=== PATIENT | female | born 1995 | race Caucasian/White ===

== ENCOUNTER 2022-05-18 16:17 | Inpatient (IN) | payer MEDICAID, SELFPAY ==
[2022-05-18] VITALS (15 sets, daily range): BP systolic 96–123; BP diastolic 51–72; PULSE 69–105; RESP 18–20; TEMP 36.6–36.9; O2SAT 93–98; BMI 47.0
[2022-05-18 12:47] LABS: Amnisure Rom* Negative
[2022-05-18 15:59] LABS: Amnisure Rom* POSITIVE
[2022-05-18] MEDS: miSOPROStoL 25 MCG/0.25 TABLET PO ×4 (17:13→23:20)
--- NOTE | 2022-05-18 17:58 | PM.OBHPLI ---
OB - H&P: HPI Labor/Induction History of Present Illness Time Seen by Provider: 17:58 Date Seen: 05/18/22 Chief Complaint: Rupture of membranes Chief complaint: Maternity : 2 Para: 0 Narrative: Sumaya Baker is a 26 year old 2 para 0 at 38.1 weeks gestation by9 week ultrasound, who presents with SROM. Patient presented with possible SROM at 1030 this morning. Initially had negative amnisure, but was kumar irregularly and monitored. She was rechecked and found to be unchanged but had copious fluid and repeat amnisure was positive. Dates are based by 9 week ultrasound. complicated by: 1) Prepregnancy BMI of 45, on asa prophylaxis. Normal echo and level 2 EFW at 36 weeks was 65th Percentile 2) Gestational diabetes, diet controlled. Has been doing well has rare elevated glucose 3) Recurrent e.coli UTI, has been on prophylaxis most of , treated with IM ceftriaxone 4) History of depression/anxiety prior to . Hopes to restart prozac and wellbutrin after delivery. History of Present Dating criteria: other (9 week ultrasound) care: good care Ultrasounds: normal 1st trimester US and normal mid trimester US complications: gestational diabetes complications comment: recurrent ecoli UTI Medical complications: genitourinary Labs Blood type: O (+) positive Rubella: immune RPR/VDLR: nonreactive GBS status: negative HBsAG: negative Narrative: Chlamydia negative, hemoglobin 11.1 (04/27/22), HCV non reactive, Failed GTT. Review of Systems Status of ROS: Reports: 10 or more systems reviewed and unremarkable except as noted in History and below Meds Home Medications and Allergies Home Medications Medication Instructions Recorded Confirmed Type albuterol sulfate 90 mcg/actuation inhalation 05/18/22 History aerosol inhaler aspirin 81 mg tablet,delayed mg 05/18/22 History release blood sugar diagnostic (Accu-Chek 05/18/22 05/18/22 History Guide test strips) blood-glucose meter (Accu-Chek 05/18/22 05/18/22 History Guide Me Glucose Meter) [id number]-zeoebrtm cap 05/18/22 History 50 mg-300 mg-40 mg capsule cholecalciferol (vitamin D3) 50 05/18/22 History mcg (2,000 unit) tablet doxylamine succinate 25 mg tablet mg 05/18/22 History (Sleep Aid (doxylamine)) lancets (Accu-Chek Softclix 05/18/22 05/18/22 History Lancets) lancets 30 gauge (OneTouch Delica 05/18/22 05/18/22 History Plus Lancet) Allergies Allergy/AdvReac Type Severity Reaction Status Date / Time shellfish Allergy Severe Uncoded 05/18/22 17:50 tape sensativity Allergy Severe Uncoded 05/18/22 17:50 OB - H&P: Exam Physical Exam: Vital signs: Temp Pulse Resp BP Pulse Ox 98.1 F 105 H 20 119/68 97 05/18/22 17:00 05/18/22 17:00 05/18/22 17:00 05/18/22 17:00 05/18/22 17:00 Constitutional: Constitutional: no acute distress and cooperative Routine HEENT Exam: Head: Present atraumatic, normal inspection and normocephalic Routine Neck Exam: Neck: Present full ROM Routine Respiratory Exam: Respiratory: Present CTA bilaterally Routine Cardiovascular Exam: Cardiovascular: RRR, S1 and S2 Routine Abdominal Exam: Abdominal: Present normal bowel sounds Detailed Labor and Delivery Exam: Patient Gravid: yes Contraction intensity: Mild Routine Psychiatric Exam: Present normal affect and normal thought process OB - Problem Based A/P Additional Plan (1) Term : Status: Acute Plan: Admitted following SROM. Oliveira score unfavorable, so will do cytotec tonight and start pitocin when cervix more favorable. (2) Gestational diabetes mellitus: Status: Acute Plan: - blood sugars per protocol, has been diet controlled. (3) Anxiety and depression: Status: Acute Plan: plan to restart Wellbutrin and SSRI after delivery Delivery/Labor/Induction Plan Plan: induction Induction method: per misoprostol protocol
[2022-05-18 19:33] LABS: SARS PCR* Negative SARS-CoV-2 (Negative)
[2022-05-18 19:41] LABS: Basophils Absolute Auto 0.02 K/uL (0.00-0.30); Basophils Percent Auto 0.2 % (0.0-3.0); Eosinophils Absolute Auto 0.06 K/uL (0.00-0.50); Eosinophils Percent Auto 0.6 % (0.0-7.0); Hematocrit 34.5 % (33.0-51.0); Hemoglobin* 11.6 gm/dL (12.0-16.0); Immature Granulocytes Abs Auto 0.03 K/uL (0.00-0.30); Immature Granulocytes Pct Auto 0.3 %; Lymphocytes Percent Auto 14.4 % (20-44); Mean Corpuscular HGB Conc 34 gm/dL (32-36); Mean Corpuscular Hemoglobin 28 pg (26-34); Mean Corpuscular Volume 83 fL (80-100); Monocytes Percent Auto 5.5 % (0.0-11.0); Platelet Count* 242 K/uL (140-440); RDW Coefficient of Variation % 13.8 % (11.5-15.5); Red Blood Count 4.15 m/uL (4.00-5.20); White Blood Count* 10.28 K/uL (4.50-11.00)
[2022-05-18 19:45] LABS: Slide Review Reflex No
[2022-05-18] MEDS: SODIUM CHLORIDE 0.9 % (FLUSH) 10 ML SYRINGE IVF (23:17)
[2022-05-19] VITALS (202 sets, daily range): BP systolic 74–139; BP diastolic 37–86; PULSE 60–153; RESP 16–20; TEMP 36.3–38; O2SAT 88–100
[2022-05-19] MEDS: SODIUM CHLORIDE 0.9 % (FLUSH) 10 ML SYRINGE IVF (00:26)
[2022-05-19] MEDS: LACTATED RINGERS 1000 ML 1,000 ML 1200 ML IV ×3 (00:28→06:17)
[2022-05-19] MEDS: ROPIVACAINE 0.2% 100 ml 100 ML 12 MG EPIDURAL ×3 (01:25→15:23)
[2022-05-19] MEDS: fentaNYL 250 MCG/5 ML inj 100 MCG EPIDURAL (01:25)
[2022-05-19] MEDS: LIDOCAINE 2% (PF) 5 ML VIAL EPIDURAL (01:26)
--- NOTE | 2022-05-19 01:35 | P.ANBPRC_ITS ---
PFSH PFS Social History Smoking Status: Former smoker Meds Home Medications and Allergies Home Medications Medication Instructions Recorded Confirmed Type albuterol sulfate 90 mcg/actuation inhalation 05/18/22 History aerosol inhaler aspirin 81 mg tablet,delayed mg 05/18/22 History release blood sugar diagnostic (Accu-Chek 05/18/22 05/18/22 History Guide test strips) blood-glucose meter (Accu-Chek 05/18/22 05/18/22 History Guide Me Glucose Meter) [id number]-szkaqgwjsckiu-aazutgos cap 05/18/22 History 50 mg-300 mg-40 mg capsule cholecalciferol (vitamin D3) 50 05/18/22 History mcg (2,000 unit) tablet doxylamine succinate 25 mg tablet mg 05/18/22 History (Sleep Aid (doxylamine)) lancets (Accu-Chek Softclix 05/18/22 05/18/22 History Lancets) lancets 30 gauge (OneTouch Delica 05/18/22 05/18/22 History Plus Lancet) Allergies Allergy/AdvReac Type Severity Reaction Status Date / Time shellfish Allergy Severe Uncoded 05/18/22 17:50 tape sensativity Allergy Severe Uncoded 05/18/22 17:50 Results Labs Labs: Laboratory Results - last 24 hr 05/18/22 05/18/22 05/18/22 12:28 15:24 16:27 WBC RBC Hgb Hct MCV MCH MCHC RDW Coeff of Reji Plt Count Neut % (Auto) Lymph % (Auto) [place] % (Auto) Eos % (Auto) Baso % (Auto) Neut # (Auto) Lymph # (Auto) [place] # (Auto) Eos # (Auto) Baso # (Auto) Abs Immat Gran (auto) Imm/Tot Granulo (auto) Membrane Rupture Negative POSITIVE SARS-CoV-2 (PCR) Negative SARS-CoV-2 Blood Type Antibody Screen 05/18/22 05/18/22 19:35 19:35 WBC 10.28 RBC 4.15 Hgb 11.6 L Hct 34.5 MCV 83 MCH 28 MCHC 34 RDW Coeff of Reji 13.8 Plt Count 242 Neut % (Auto) 79.0 H Lymph % (Auto) 14.4 L [place] % (Auto) 5.5 Eos % (Auto) 0.6 Baso % (Auto) 0.2 Neut # (Auto) 8.10 H Lymph # (Auto) 1.50 [place] # (Auto) 0.60 Eos # (Auto) 0.06 Baso # (Auto) 0.02 Abs Immat Gran (auto) 0.03 Imm/Tot Granulo (auto) 0.3 Membrane Rupture SARS-CoV-2 (PCR) Blood Type O Positive Antibody Screen NEGATIVE Vital Signs Vital Signs: Last Vital Signs Temp 98.4 F 05/18/22 23:14 Pulse 86 05/19/22 01:33 Resp 20 05/18/22 23:14 BP 107/58 L 05/19/22 01:33 Pulse Ox 94 05/19/22 01:33 Weight: 116.5 kg Height: 157.48 cm Anesthesia Procedures Epidural Insertion Patient Location: OB Start Time: 00:30 Stop Time: 01:35 Start Date: 05/19/22 Stop Date: 05/19/22 Reason for Block: primary anesthetic Patient Position: sitting Performed By: Darwin Franz Preanesthetic Checklist: IV checked, risks and benefits discussed, surgical consent, monitors and equipment checked, pre-op evaluation, timeout performed a nd anesthesia consent Prep: chlorhexidine gluconate Monitoring: blood pressure monitoring, chocolate molder, continuous pulse oximetry and heart rate Approach: midline Vertebral Space: lumbar (1-5) Needle Type: Tuohy needle Injection Technique: continuous catheter Needle gauge: 17 Needle Length (cm): 10 cm Needle Insertion Depth (cm): 9 Catheter Gauge: 19 Catheter Type: multi-orifice Catheter at skin depth (cm): 14 Test Dose Result: negative and lidocaine 1.5% with epinephrine 1 to 200,000 Events: other
[2022-05-19] MEDS: OXYTOCIN 30 unit/500 ML in NS 30 UNIT/500 ML BAG IVPB ×2 (02:24→03:00)
[2022-05-19] MEDS: PHENYLEPHRINE 100 MCG/ML SYRINGE IVP ×3 (06:03→06:19)
--- NOTE | 2022-05-19 09:57 | P.OBPN_ITS ---
Subjective Time Seen by Provider: 09:20 Date Seen: 05/19/22 Narrative: I was called by RN for consideration of IUPC. Contractions difficult to follow with external monitor, on pitocin. Pit at 9. Patient states overall comfortable. Some discomfort in her lower abdomen and back with contractions. Objective Vital Signs: Last Vital Signs Temp 98.9 F 05/19/22 09:46 Pulse 73 05/19/22 09:52 Resp 16 05/19/22 09:46 BP 135/64 05/19/22 09:52 Pulse Ox 98 05/19/22 07:45 Pelvic Exam Dilation (cm): 5 Effacement (%): 90 Station: 0 Comments: Unable to determine position due to caput. Contractions Contraction intensity: Mild Plan Plan: IUPC placed following shared decision-making conversation with the patient. C ontinue to titrate pitocin. FHT category 2, occasional variables Anticipate vaginal delivery.
[2022-05-19] MEDS: ONDANSETRON 2 MG/ML inj 4 MG IV (12:03)
[2022-05-19] MEDS: LACTATED RINGERS 1000 ML 1,000 ML 125 ML IV (13:43)
--- NOTE | 2022-05-19 15:07 | PM.OBPNL ---
Subjective Time Seen by Provider: 15:07 Date Seen: 05/19/22 Narrative: Patient found to be complete at 1330. Pushing sine 1350. Pain control is good. Patient perceives pressure well. Support from FOB and patient's mother. Objective Vital Signs: Last Vital Signs Temp 98.9 F 05/19/22 11:20 Pulse 67 05/19/22 15:04 Resp 18 05/19/22 11:20 BP 107/59 L 05/19/22 15:04 Pulse Ox 98 05/19/22 07:45 Pelvic Exam Dilation (cm): 10 Effacement (%): 100 Station: +2 Contractions Monitor mode: Internal Contraction Frequency: q1-2 mins Contraction pattern: Regular Pitocin Rate (mU/min): 14 Assessment Status: Category ll Heart Rate Baseline: 170 [facility] Variability: Moderate (6-25) Monitor Accelerations: Present Monitor Decelerations: Variable Plan Plan: Complete and pushing. Making good progress. Continue current management. Anticipate vaginal delivery.
--- NOTE | 2022-05-19 16:20 | P.OBCN_ITS ---
OB - CN: HPI Date of Consult Date Seen: 05/19/22 Patient: Amy Patient Consult date: 05/19/22 Requesting Physician: Edgar Corrigan MD Primary Care Provider: Not a Local Provider Consult Narrative Reason for consult: other (Maternal exhaustion, requesting delivery) Narrative: The patient is a 26 year old G 2 P 0010 at 38 2/7 weeks gestation that was admitted to the Center on 05/18/22 for labor induction after PROM. Patient was transferred to our labor and delivery unit due to her hospital being on divert. Managed primarily by [facility] providers. IOL progressing adequately. Patient received epidural at around 1am this morning. She progressed to complete dilation at around 1:30pm today and started pushing at around 1:50pm today. After 2 hours of pushing patient has made little change, I was asked to come in to evaluate positioning and also because patient is requesting delivery. Please see [facility] provider H&P for complete history. History of Present Dating criteria: based on LMP care: good care Ultrasounds: normal 1st trimester US complications: gestational diabetes complications comment: recurrent ecoli UTI History History 2 Elective abortions Para 0 Spontaneous abortions Hx # Term Pregnancies Ectopic pregnancies Hx # Pregnancies Multiple births Number of Living Children Labs Blood type: O (+) positive Rubella: immune RPR/VDLR: nonreactive GBS status: negative HBsAG: negative OB Labs: Lab Assessment Start: 05/18/22 12:12 Freq: Status: Complete Protocol: PC.OBGBS Activity Type Activity Date Activity User E-sign Co-sign Detail Recorded Client Recorded Date Recorded By Document 05/18/22 12:12 FRANCESCA [id number] 05/18/22 12:12 SALEEM BELLA 05/18/22 12:12 Lab Assessment GBS Negative Lab Assessment Start: 05/18/22 16:27 Freq: ONCE Status: Complete Protocol: PC.OBGBS Activity Type Activity Date Activity User E-sign Co-sign Detail Recorded Client Recorded Date Recorded By Document 05/18/22 17:00 SD [id number] 05/18/22 17:46 SD 05/18/22 17:00 Lab Assessment GBS Negative Previous [place] with Invasive GBS No Does Patient Meet Criteria No Is Patient Allergic to Penicillin No Does Patient Have History of Severe No Reaction Are Susceptibility Studies Available No Resistant to Either Clindamycin or No Erythromycin No Treatment Needed OK Maternal Blood Type O Maternal RH Factor Positive Evaluate Maternal Rubella Immune Status Immune Hepatitis B Surface Antigen Negative Maternal HIV Status Negative Maternal Syphillis (RPR) Status Negative Are Labs Available Yes PFSH PFSH Social History Smoking Status: Former smoker Meds Home Medications and Allergies Home Medications Medication Instructions Recorded Confirmed Type albuterol sulfate 90 mcg/actuation inhalation 05/18/22 History aerosol inhaler aspirin 81 mg tablet,delayed mg 05/18/22 History release blood sugar diagnostic (Accu-Chek 05/18/22 05/18/22 History Guide test strips) blood-glucose meter (Accu-Chek 05/18/22 05/18/22 History Guide Me Glucose Meter) [id number]-ojnozaimcyewo-aandwxto cap 05/18/22 History 50 mg-300 mg-40 mg capsule cholecalciferol (vitamin D3) 50 05/18/22 History mcg (2,000 unit) tablet doxylamine succinate 25 mg tablet mg 05/18/22 History (Sleep Aid (doxylamine)) lancets (Accu-Chek Softclix 05/18/22 05/18/22 History Lancets) lancets 30 gauge (OneTouch Delica 05/18/22 05/18/22 History Plus Lancet) Allergies Allergy/AdvReac Type Severity Reaction Status Date / Time shellfish Allergy Severe Uncoded 05/18/22 17:50 tape sensativity Allergy Severe Uncoded 05/18/22 17:50 OB - H&P: Exam Physical Exam: Vital signs: Temp Pulse Resp BP Pulse Ox 98.8 F 76 20 124/62 98 05/19/22 16:15 05/19/22 15:41 05/19/22 16:15 05/19/22 15:41 05/19/22 07:45 Narrative: Cervix: 10cm dilated, OP presentation suspected, minimal caput, seems to have adequate space. NST: 155bpm/episodes of minimal variability at this moment/ negative decelerations/regular uterine contractions/ no accelerations in the past 20 minutes at the moment of this dictation. 4:28pm. Category 2. OB - Results Labs Labs: Short CBC 05/18/22 Range/Units 19:35 WBC 10.28 (4.50-11.00) K/uL Hgb 11.6 L (12.0-16.0) gm/dL Hct 34.5 (33.0-51.0) % Plt Count 242 (140-440) K/uL OB - CN: A/P Assessment and Plan (1) Term : Status: Acute (2) Gestational diabetes mellitus: Status: Acute (3) Anxiety and depression: Status: Acute Plan Patient has only been pushing for about 2 hours, baby is OP, but minimal caput and pelvis seems to have an adequate space. After discussing this with patient she is desperate and would like to proceed with . I told her that sometimes it takes up to 4 hours to push a baby out, but that delivery is always an option. Discussed how procedure is performed, risks of surgery such as bleeding, infection, damage to nearby organs, blood clots. Discussed interventions that we do to prevent these risks. Discussed family centered section. Informed consent signed by patient, will notify anesthesia and proceed to the OR.
--- NOTE | 2022-05-19 16:43 | PM.OBPRCCS ---
Procedure Pre-op/Post-op diagnoses: Pre-Op/Post-Op Diagnoses Operation Date: 05/19/22 17:15 <No data on this case meets the specified criteria> Procedure Done: only Procedure Details: Procedures Operation Date: 05/19/22 17:15 <No data on this case meets the specified criteria> Estimated blood loss (mL): 1,589 Disposition: floor Anesthesia type: Epidural Complications: Uterine atony Narrative: PREOPERATIVE DIAGNOSES: 1. Intrauterine at 38 2/7 weeks' gestation. 2. section upon maternal request in the second stage of labor POSTOPERATIVE DIAGNOSES: 1. Intrauterine at 38 2/7 weeks' gestation. 2. section upon maternal request in the second stage of labor 3. Uterine atony with hemorrhage NAME OF PROCEDURE: Primary low transverse section. ANESTHESIA: Epidural. COMPLICATIONS: uterine atony with postpartm hemorrhage. ESTIMATED BLOOD LOSS: 1589 DRAINS: Last to gravity. FINDINGS: Live-born male , vertex presentation, Apgars 1, 5 and 8 at 1,5 and 10 minutes respectively. weight 8 pounds 4 ounces PROCEDURE: After obtaining informed consent, the patient was taken to the operating room where spinal anesthesia was obtained and found to be adequate. She was prepared and draped in the normal sterile fashion in the dorsal supine position with a leftward tilt. A Pfannenstiel skin incision was made with a scalpel about 2 cm above symphysis pubic bone, 8-10 cm in length. This incision was carried down to the underlying layer of fascia with the Bovie and scalpel. The fascia was incised in the midline and the incision extended laterally. The rectus muscles were in the midline. The Ethan O retractor was then placed into the incision. The lower uterine segment was then incised in a transverse fashion with the scalpel. Upon entry into the uterus, clear amniotic fluid was noted. The uterine incision was extended cephalo caudally with blunt finger fractionation. head was found deeper in the pelvis than on my exam prior to surgery, I then asked for vaginal assistance, the vertex was brought up to incision (felt to be ROT) and with fundal pressure the head was delivered followed by the rest of the body. Baby was seen to be without good tone and the cord was clamped and cut immediately, baby was brought to the warmer right away. The placenta was delivered spontaneously with umbilical cord traction and fundal massage. The uterus was cleared of all clots and debris. There was a significant uterine atony identified that responded well to uterotonics (Methergine x2, rectal cytotec 800mcg also 1 dose of 1g of tranexamic acid given). The uterine incision was reapproximated in a running locking fashion with a 0 Vicryl suture. A 2nd layer of the same suture was used to imbricate in horizontal fashion. There was a small extension of the hysterotomy to the right side, this was about 2cm, broad ligament was found to be intact this was inspected thoroughly. The gutters were inspected and cleared of blood clot. All instruments and retractors were removed. The subfascial tissues were carefully inspected and hemostasis assured. The fascia was reapproximated in a running fashion with a looped 0 PDS suture. The subcutaneous tissues were inspected and hemostasis was assured. The subcutaneous fat layer was reapproximated with interrupted sutures of 3-0 Vicryl (two layers). The skin was closed in a subcuticular fashion with 4-0 Vicryl. LiquiBand and dressing were applied. The patient tolerated the procedure well. Sponge, lap, needle, and instrument counts were reported as correct x2. The patient was taken to the recovery room, awake, and in stable condition. She did receive 2 grams of IV Ancef preoperatively.
[2022-05-19] MEDS: DEXTROSE 50 % SYRINGE IVP (16:55)
[2022-05-19] MEDS: CEFAZOLIN 1 GM inj 3 GM IVP (17:10)
[2022-05-19] MEDS: miSOPROStoL 800 MCG/4 TABLET PR (17:33)
[2022-05-19] MEDS: KETOROLAC 15 MG/ML inj IVP (18:05)
--- NOTE | 2022-05-19 19:05 | P.NB_ITS ---
Nerve Block Nerve Block Time Seen by Provider: 18:25 Date Seen: 05/19/22 Type of block requested by surgeon for post-operative analgesia: TAP Side: bilateral Time out performed: Yes Verification of patient name: Yes Verification of date of : Yes Name of person performing procedure: CANDIE lopez Continuous monitoring Was continuous monitoring of O2 sat, B/P, school bus monitor, recorded every 15 minutes?: Yes Procedure Checklist: sterile prep, needles and gloves Ultrasound guided. Images saved: Yes Medications given in 5ml increments after negative aspiration: Marcaine (30 total) %: 0.25 mL: 15 Needle gauge: 20 and Exparel (10 total) mL: 5 Needle gauge: 20 Patient tolerated procedure well: Yes Block Charges Block Charge (with Pro Fee): TAP Bilateral Use of Ultrasound Machine for Block: Yes- US Guidance/pain block
--- NOTE | 2022-05-19 19:08 | W.ANESCHARGE ---
Anesthesia Charges Start Date/Time Anesthesia Start Date: 05/19/22 Anesthesia Start Time: 17:04 Stop Date/Time Anesthesia Stop Date: 05/19/22 Anesthesia Stop Time: 18:37 Summary Emergency: Yes
[2022-05-20] VITALS (9 sets, daily range): BP systolic 88–103; BP diastolic 53–67; PULSE 67–84; RESP 16–18; TEMP 36.4–36.7; O2SAT 94–97
[2022-05-20] MEDS: KETOROLAC 30 MG/ML inj IVP ×4 (00:41→18:53)
[2022-05-20] MEDS: SODIUM CHLORIDE 0.9 % (FLUSH) 10 ML SYRINGE IVF ×2 (00:43→06:53)
[2022-05-20] MEDS: LACTATED RINGERS 1000 ML 1,000 ML 125 ML IV (00:55)
[2022-05-20] MEDS: diphenhydrAMINE 50 MG/ML inj 12.5 MG IVP (03:13)
[2022-05-20] MEDS: ACETAMINOPHEN 500 MG TABLET 1000 MG PO ×2 (04:08→18:53)
[2022-05-20] MEDS: ENOXAPARIN 40 MG/0.4 ML INJ SUBCUT (06:50)
--- NOTE | 2022-05-20 07:42 | PM.OBPNCS1 ---
OB - PN: A/P Assessment and Plan (1) Term : Status: Acute (2) Gestational diabetes mellitus: Status: Acute (3) Anxiety and depression: Status: Acute Plan Comments: Postoperative Review: - Admitted for: IOL due to PROM - Surgical procedure: Primary section for failure to descend - Skin incision: Pfannenstiel - Closure: sutures - QBL: 1559 cc - Intraoperative Complications: uterine atony causing hemorrhage requiring multiple uterotonics - Urine output: adequate - Preop Hgb: 11.6 - Postop Hgb: 8.4 Postoperative care: - Diet: Advance as tolerated - Fluid: Encourage oral intake - Activity: Encourage ambulation and incentive spirometry - Pain: Ibuprofen, tylenol and oxycodone - DVT prophylaxis: SCDs when not ambulating. Ppx lovenox Q24H while in patient A1DM - Well controlled - Need 2 hr gtt at 6 weeks Discharge Planning - Follow up in 5-7 days for incision check in clinic - Follow Up: follow-up in 3-6 weeks in clinic Baby's Status - Fetus: 1, 5, 8 / 3749 g, male - Location: Bedside with mom Dispo: Patient is POD#1. Not yet 24 hours post op. Need the following milestones: ambulate without assistance, urinate without haile, tolerating regular diet and passing flatus. Anticipate discharge POD#2/3. OB - PN: Subj Subjective Time Seen by Provider: 07:42 Date Seen: 05/20/22 Narrative: Overnight patient had no complaints. Her pain is well controlled on oral pain medications, she rates her pain at about a 2-4 out of 10 overnight. She is not yet tolerating a regular diet but she did order breakfast. She has not passed flatus. She is not ambulating without difficulty. Lochia is scant. She is urinating with haile. Patient denies chest pain, SOB, n/v, headache, RUQ pain, vision changes, dizziness. OB - PN: Obj Exam Physical Exam: Vital signs: Temp Pulse Resp BP Pulse Ox O2 Del Method 97.8 F 69 16 103/66 96 05/20/22 04:10 05/20/22 04:10 05/20/22 04:10 05/20/22 04:10 05/20/22 04:10 05/20/22 04:10 Narrative: Physical exam: General: No acute distress Psych: Alert and oriented x3, full affect HEENT: Normocephalic, atraumatic Neck: No cervical adenopathy, no thyromegaly Heart: Regular rate and rhythm, no murmur rub or gallop Lungs: Clear to auscultation bilaterally Abdomen: Normoactive bowel sounds, soft, appropriately tender at incision site. No rebound or guarding Skin: No lesions or rashes Lower extremities: 2+ bilateral edema Pelvic exam: scant lochia on pad
[2022-05-20 08:24] LABS: Hemoglobin* 8.4 gm/dL (12.0-16.0)
[2022-05-20] MEDS: DOCUSATE SODIUM 100 MG CAPSULE PO (10:02)
[2022-05-20] MEDS: SIMETHICONE 80 MG TAB.CHEW PO (18:54)
[2022-05-21] MEDS: KETOROLAC 30 MG/ML inj IVP (01:04)
[2022-05-21] MEDS: SODIUM CHLORIDE 0.9 % (FLUSH) 10 ML SYRINGE IVF (01:05)
[2022-05-21] MEDS: SIMETHICONE 80 MG TAB.CHEW PO ×2 (01:34→11:57)
[2022-05-21] MEDS: ACETAMINOPHEN 500 MG TABLET 1000 MG PO ×3 (03:47→18:07)
[2022-05-21 04:42] VITALS: BP 103/66; PULSE 84; RESP 16; TEMP 36.8; O2SAT 97
[2022-05-21] MEDS: IBUPROFEN 600 MG TABLET PO ×2 (06:41→14:03)
[2022-05-21] MEDS: ENOXAPARIN 40 MG/0.4 ML INJ SUBCUT (06:42)
[2022-05-21 07:41] VITALS: BP 103/67; PULSE 79; RESP 16; TEMP 36.8; O2SAT 96
--- NOTE | 2022-05-21 08:47 | P.DS_ITS ---
DS: Providers Provider Time Seen by Provider: 09:00 Date Seen: 05/21/22 Date of admission: 05/18/22 16:17 Primary care physician: Not a Local Provider Admitting Clinician: Irina Collins MD Attending Physician on discharge: Irina Collins MD Date of Discharge: 05/21/22 DS: Diagnosis Discharge Diagnosis (1) S/P section: Status: Acute Exam Narrative: Exam Narrative: General: No acute distress Psych:? Alert and oriented x3, full affect HEENT:? Normocephalic, atraumatic Neck:? No cervical adenopathy, no thyromegaly Heart:? Regular rate and rhythm, no murmur rub or gallop Lungs:? Clear to auscultation bilaterally Abdomen:? Normoactive bowel sounds, soft, appropriately tender at incision site.? No rebound or guarding Incision: Clean, dry, and intact. Without erythema or purulent discharge. Appropriately tender. Skin:? No lesions or rashes Lower extremities: 2+ bilateral edema Pelvic exam:? scant lochia on pad Const: Vital Signs, click to edit/add: Vital Signs - 24 hr 05/20/22 13:01 05/20/22 12:00 05/20/22 16:13 Temperature 98.0 F 97.6 F Pulse Rate [Pulse Oximeter] 80 76 Respiratory Rate 16 16 16 Blood Pressure [Le ft Arm] 90/57 L 88/53 L Pulse Oximetry 96 97 Oxygen Delivery Me thod Room Air Room Air 05/20/22 16:00 05/20/22 19:28 05/21/22 04:42 Temperature 98 F 98.2 F Pulse Rate [Pulse Oximeter] 76 84 Respiratory Rate 16 16 16 Blood Pressure [Le ft Arm] 90/58 L 103/66 Pulse Oximetry 96 97 Oxygen Delivery Me thod Room Air Room Air 05/21/22 07:41 Temperature 98.3 F Pulse Rate [Pulse Oximeter] 79 Respiratory Rate 16 Blood Pressure [Le ft Arm] 103/67 Pulse Oximetry 96 Oxygen Delivery Me thod Room Air OB - DS: Summary Hospital Course Hospital Course: The patient is a 26 year old G 2 P 2002 at 38.1 weeks gestation that was admitted to the Center on 05/18/22 for PROM. She had a delivery complicated by uterine atony resulting in hemorrhage. She delivered a viable male infant with initially low but currently doing well. She is breast feeding. the patient has done well. Overnight patient had no complaints.? Her pain is well controlled on oral pain medications, still rates her pain from 2-4/10. She is tolerating a regular diet. She has passed flatus. She is ambulating without difficulty. Lochia is scant. She is urinating without haile. Patient denies chest pain, SOB, n/v, headache, RUQ pain, vision changes, dizziness.? Comments: Postoperative Review: - Admitted for: IOL due to PROM - Surgical procedure: Primary section for failure to descend - Skin incision: Pfannenstiel - Closure: sutures - QBL: 1559 cc ? ? - Intraoperative Complications: uterine atony causing hemorrhage requiring multiple uterotonics - Urine output: adequate - Preop Hgb: 11.6? ? - Postop Hgb: 8.4, asymptomatic Postoperative care: - Diet: Advance as tolerated - Fluid: Encourage oral intake - Activity: Encourage ambulation and incentive spirometry - Pain: Ibuprofen, tylenol and oxycodone - DVT prophylaxis: SCDs when not ambulating. Ppx lovenox Q24H while in patient A1DM - Well controlled - Need 2 hr gtt at 6 weeks Discharge Planning - Follow up in 5-7 days for incision check in clinic - Follow Up: follow-up in 3-6 weeks in clinic Baby's Status - Fetus: 1, 5, 8 / 3749 g, male - Location: Bedside with mom Dispo: Patient is POD#2. Need the following milestones: none. Stable and appropriate for discharge today.? Peripartum Data Procedures: Procedures Operation Date: 05/19/22 17:15 Actual Procedure Side Surgeon p Section Not Applicable Margret Sorto MD Gender: Male Time Spent with Patient Time attestation: Total time spent providing and/or coordinating discharge services: Discharge Plan Discharge Disposition: Home, Self-Care Date of Admission: 05/18/22 16:17 Attending Provider on Discharge: Mae Rowland MD Primary Care Provider: Provider,Not a Local Condition: Stable Anticipated Discharge Date/Time: 05/21/22 18:56 Discharge Medications: New ibuprofen 600 mg tablet 600 mg PO Q6H PRN (Reason: fever or pain) Qty: 60 1RF ascorbic acid (vitamin C) [Vitamin C] 500 mg capsule, extended release 500 mg PO DAILY Qty: 30 0RF ferrous sulfate 27 mg iron tablet 27 mg PO DAILY Qty: 30 0RF sennosides [Senna Lax] 8.6 mg tablet 8.6 mg PO DAILY Qty: 30 0RF polyethylene glycol 3350 [Miralax] 17 gram/dose powder 17 g PO DAILY Qty: 238 0RF simethicone [Gas-X Extra Strength] 125 mg capsule 125 mg PO BID-QID PRN (Reason: abdominal distention) Qty: 60 0RF oxycodone 5 mg capsule 5 mg PO Q6H PRN (Reason: pain) Qty: 20 0RF Continued Sleep Aid (doxylamine) 25 mg tablet Label Comments: TAKE 1 TABLET BY MOUTH IN THE EVENING FOR NAUSEA IN albuterol sulfate 90 mcg/actuation HFA aerosol inhaler INHALATION Label Comments: INHALE 2 PUFFS BY MOUTH EVERY 4 HOURS NEEDED FOR SHORTNESS OF BREATH OR COUGH cholecalciferol (vitamin D3) 50 mcg (2,000 unit) tablet Label Comments: TAKE 1 TABLET BY MOUTH ONCE DAILY [id number] 50-300-40 mg capsule Label Comments: TAKE 1 CAPSULE BY MOUTH EVERY 4 HOURS Discontinued (DME) blood-glucose meter [Accu-Chek Guide Me Glucose Mtr] Misc MISCELLANEOUS (DME) Accu-Chek Guide test strips Strip MISCELLANEOUS aspirin 81 mg tablet,delayed release (DR/EC) Label Comments: TAKE 1 TABLET BY MOUTH ONCE DAILY (DME) lancets [Accu-Chek Softclix Lancets] Misc MISCELLANEOUS (DME) lancets [OneTouch Delica Plus Lancet] 30 gauge [facility] MISCELLANEOUS Label Comments: USE 1 TO CHECK GLUCOSE 4 TIMES DAILY Discharge Orders: Discharge Order (Routine); Ordered 05/21/22 Ordered By: Maemarlene Rowland Patient Education: (DC) Additional Instructions: Patient verbalized understanding of reviewed discharge instructions. Activity Level: Activity as Tolerated Activity Detail: No heavy lifting more than 20lb for 6 weeks Discharge Diet: Regular Follow Up Appointments: Provider,Not a Local [Primary Care Provider] - Forms: [facility] Info Instructions
[2022-05-21] MEDS: DOCUSATE SODIUM 100 MG CAPSULE PO (08:56)
[2022-05-21] MEDS: OXYCODONE 5 MG TABLET PO ×2 (16:17→19:29)
[2022-05-21 16:35] VITALS: BP 103/67; PULSE 86; RESP 16; TEMP 36.8; O2SAT 97
[2022-05-21 19:32] VITALS: BP 110/66; PULSE 98; RESP 18; TEMP 36.3; O2SAT 97
[2022-05-22] MEDS: ACETAMINOPHEN 500 MG TABLET 1000 MG PO (00:04)
[2022-05-22] MEDS: OXYCODONE 5 MG TABLET PO ×2 (01:23→10:23)
[2022-05-22 03:19] VITALS: BP 105/68; PULSE 91; RESP 18; TEMP 36.5; O2SAT 97
[2022-05-22] MEDS: IBUPROFEN 600 MG TABLET PO (07:50)
[2022-05-22] MEDS: ENOXAPARIN 40 MG/0.4 ML INJ SUBCUT (07:50)
[2022-05-22] MEDS: DOCUSATE SODIUM 100 MG CAPSULE PO (07:50)
[2022-05-22 08:28] VITALS: BP 114/72; PULSE 84; RESP 16; TEMP 36.7; O2SAT 97
--- NOTE | 2022-05-22 09:57 | P.DS_ITS ---
DS: Providers Provider Date Seen: 05/22/22 Date of admission: 05/18/22 16:17 Primary care physician: Not a Local Provider Admitting Clinician: Irina Collins MD Attending Physician on discharge: Keiry Pastrana CNM DS: Diagnosis Discharge Diagnosis (1) care and examination immediately after delivery: Status: Acute (2) Gestational diabetes mellitus: Status: Acute (3) Anxiety and depression: Status: Acute (4) S/P section: Status: Acute (5) Lactating mother: Status: Acute Exam Const: Vital Signs, click to edit/add: Vital Signs - 24 hr 05/21/22 19:32 05/21/22 16:35 05/22/22 03:19 Temperature 97.3 F L 98.2 F 97.7 F Pulse Rate [Pulse Oximeter] 98 86 91 Respiratory Rate 18 16 18 Blood Pressure [Le ft Arm] 110/66 103/67 105/68 Pulse Oximetry 97 97 97 Oxygen Delivery Me thod Room Air Room Air Room Air 05/22/22 08:28 Temperature 98.1 F Pulse Rate [Pulse Oximeter] 84 Respiratory Rate 16 Blood Pressure [Le ft Arm] 114/72 Pulse Oximetry 97 Oxygen Delivery Me thod Room Air Documenting provider has reviewed patient's vital signs: yes Common normals: no apparent distress, oriented x3, healthy appearing and alert HENMT: Common normals: normocephalic Head and scalp: normocephalic Eye: Common normals: PERRL Pupil: PERRL Neck & C-Spine: Common normals: full ROM and supple Chest: Common normals: inspection of chest normal Resp: Common normals: normal respiratory effort and clear to auscultation bilaterally Auscultation: clear to auscultation bilaterally Cardio: Common normals: regular rate and regular rhythm Rate: regular rate Rhythm: regular rhythm GI: Common normals: soft to palpation Inspection: incision (Abdomnial lower transverse: clean, dry, and well approximated) Palpation: soft : Uterus: U/U Lochia: small Back & Pelvis: Common normals: thoracic and lumbar spine normal to inspection Extremity: Common normals: normal to inspection and full ROM Neuro: Common normals: oriented x3 Sensorium/orientation: alert Speech: speech normal Psych: Common normals: mental status grossly normal, thought process normal, speech normal and activity/motor behavior normal Speech: normal speech Thought process: normal thought process Skin: Common normals: no rashes or lesions noted General skin exam: no rashes or lesions noted OB - DS: Summary Hospital Course Hospital Course: The patient is a 26 year old G 2 P 1 at 38 2/7 weeks gestation that was admitted to the [facility] on 05/18/22 for spontaneous labor. She had an uncomplicated elective cesearean delivery in the 2nd stage. She delivered a viable male . She is breast and bottle feeding. the patient has done well. The pain is well controlled with current medications.? She has no new complaints.? Urinary output is adequate and she is voiding without difficulty.? Has a good appetite, is tolerating a general diet, is passing flatus, and has had a bowel movement.? Has scant amount of rubra lochia.? She is ambulating well. She is and reports it is going well.? Peripartum Data Procedures: Procedures Operation Date: 05/19/22 17:15 Actual Procedure Side Surgeon p Section Not Applicable Margret Sorto MD complications: none Gleason Gender: Male Discharge Plan: Home Status at Discharge Functional status at discharge: independent ambulation Overall status at discharge: patient is progressing back to baseline Time Spent with Patient Time attestation: Total time spent providing and/or coordinating discharge services: Time spent: Less than 30 minutes Discharge Plan Discharge Disposition: Home, Self-Care Date of Admission: 05/18/22 16:17 Attending Provider on Discharge: Keiry Pastrana Primary Care Provider: Provider,Not a Local Condition: Stable Anticipated Discharge Date/Time: 05/22/22 10:03 Discharge Medications: New ibuprofen 600 mg tablet 600 mg PO Q6H PRN (Reason: fever or pain) Qty: 60 1RF ascorbic acid (vitamin C) [Vitamin C] 500 mg capsule, extended release 500 mg PO DAILY Qty: 30 0RF ferrous sulfate 27 mg iron tablet 27 mg PO DAILY Qty: 30 0RF sennosides [Senna Lax] 8.6 mg tablet 8.6 mg PO DAILY Qty: 30 0RF polyethylene glycol 3350 [Miralax] 17 gram/dose powder 17 g PO DAILY Qty: 238 0RF simethicone [Gas-X Extra Strength] 125 mg capsule 125 mg PO BID-QID PRN (Reason: abdominal distention) Qty: 60 0RF oxycodone 5 mg capsule 5 mg PO Q6H PRN (Reason: pain) Qty: 20 0RF Continued Sleep Aid (doxylamine) 25 mg tablet Label Comments: TAKE 1 TABLET BY MOUTH IN THE EVENING FOR NAUSEA IN albuterol sulfate 90 mcg/actuation HFA aerosol inhaler INHALATION Label Comments: INHALE 2 PUFFS BY MOUTH EVERY 4 HOURS NEEDED FOR SHORTNESS OF BREATH OR COUGH cholecalciferol (vitamin D3) 50 mcg (2,000 unit) tablet Label Comments: TAKE 1 TABLET BY MOUTH ONCE DAILY [id number] 50-300-40 mg capsule Label Comments: TAKE 1 CAPSULE BY MOUTH EVERY 4 HOURS Discontinued (DME) blood-glucose meter [Accu-Chek Guide Me Glucose Mtr] Misc MISCELLANEOUS (DME) Accu-Chek Guide test strips Strip MISCELLANEOUS aspirin 81 mg tablet,delayed release (DR/EC) Label Comments: TAKE 1 TABLET BY MOUTH ONCE DAILY (DME) lancets [Accu-Chek Softclix Lancets] Misc MISCELLANEOUS (DME) lancets [OneTouch Delica Plus Lancet] 30 gauge misc MISCELLANEOUS Label Comments: USE 1 TO CHECK GLUCOSE 4 TIMES DAILY Discharge Orders: Discharge Order (Routine); Ordered 05/22/22 Ordered By: Keiry Pastrana Patient Education: OB Over the Counter Medication Information, OB /Breast Feeding Additional Instructions: Discharge instructions were reviewed with the patient including signs and symptoms of infection and home going medications Lifting Restrictions: 20 pounds for 6 weeks No not submerge incision under water X 2 weeks? Nothing vaginally for 6 weeks: no tampons or intercourse Do not drive while taking narcotic pain medication(s) Off Work or School for 8 weeks Follow-up with primary care provider or [facility]. 2-week visit: incision check, discuss feeding concerns, review control options and screen for anxiety/depression. 6-week visit for an annual exam. consultation services are available to all mothers and babies for the first year after delivery.? To make an appointment, please call [phone]. Activity Level: Activity as Tolerated Discharge Diet: Regular Follow Up Appointments: [facility] [Provider Group] Irina Collins MD [Staff Physician] - Forms: [facility] Info Instructions
== END 2022-05-22 10:40 | disposition home or self-care (01) | DRG 787 ==
LOC: OB OUT 05-29 13:42 → OB 05-29 13:42
PROVIDERS: Obstetrics & Gynecology; Admitting Provider Family Medicine; Visit Provider Obstetrics & Gynecology
PROC: (CPT 59514; principal; 2022-05-19 17:00)
DX: O42.02 Full-term premature rupture of membranes, onset of labor within 24 hours of rupture (principal); D62 Acute posthemorrhagic anemia; O72.1 Other immediate postpartum hemorrhage; O24.420 Gestational diabetes mellitus in childbirth, diet controlled; O32.4XX0 Maternal care for high head at term, not applicable or unspecified; O90.81 Anemia of the puerperium; O99.344 Other mental disorders complicating childbirth; F41.9 Anxiety disorder, unspecified; F32.A Depression, unspecified; Z37.0 Single live birth; Z3A.38 38 weeks gestation of pregnancy
CPT/HCPCS: 01967; 01968; 36415; 59200; 64488; 76942; 84112; 85018; 85025; 86850; 86900; 86901; 87635; 88307; 99140; 99213; A9270; C9290; J0690; J1200; J1650; J1885; J2274; J2370; J2405; J2590; J2795; J3010; J7120